=== PATIENT | female | born 1975 | race Caucasian/White ===

== ENCOUNTER 2023-06-14 22:00 | Emergency (ER) | payer OTHER, SELFPAY ==
[2023-06-14 22:11] VITALS: BP 106/72; PULSE 81; RESP 16; TEMP 36.6; O2SAT 100; BMI 22.3
--- NOTE | 2023-06-14 22:17 | CRLHL7_ITS ---
For Patients: As a result of the Cures Act, medical imaging exams and procedure reports are released immediately into your electronic medical record. You may view this report before your referring provider. If you have questions, please contact your health care provider. INDICATION: Chest pain TECHNIQUE: Chest radiograph 1 view COMPARISON: None FINDINGS: Mediastinum: The mediastinum is normal in appearance. The heart silhouette is normal in size and morphology. Lung: Both lungs are unremarkable in appearance. No sign of pleural effusion seen. No pneumothorax is identified. Bone and Soft tissue: Unremarkable for age. IMPRESSION: 1. No acute cardiopulmonary disease is seen. Dictated by: Javier Tellez MD @ 06/14/2023 23:22:56 (Electronically Signed)
--- NOTE | 2023-06-14 22:18 | ED.CHESTPAIN ---
HPI - Chest Pain General Chief Complaint: Chest Pain Stated Complaint: chest pain Time Seen by Provider: 06/14/23 22:11 History of Present Illness HPI narrative: Patient is a 47-year-old woman who began feeling poorly approximately 7 hours ago with general malaise body aches and fatigue. She has had no cough no shortness of breath orthopnea no PND. She did develop chest pain approximately 3 hours ago which was substernal radiated to her jaw. She has had nausea without vomiting. She has had no abdominal pain no change in her bowel or bladder. She is quite upset about her symptoms and has had some palpitations and chest pain over the last several weeks. No other significant symptoms. Related Data Home Medications Medication Instructions Recorded Confirmed sumatriptan succinate 50 mg tablet 50 mg PO .As Needed PRN 08/07/22 03/14/23 pregabalin 75 mg capsule 150 mg PO QHS 01/30/23 03/14/23 Previous Rx's Medication Instructions Recorded estradiol 0.1 mg/24 hr semiweekly 1 patch transdermal 2XW #24 ea 06/28/22 transdermal patch amitriptyline 10 mg tablet 10 mg PO QDAY #90 tabs 01/30/23 lisdexamfetamine 40 mg capsule 40 mg PO QAM #30 caps 06/13/23 (Vyvanse) Allergies Allergy/AdvReac Type Severity Reaction Status Date / Time clavulanic acid AdvReac Gastrointestinal Verified 03/14/23 10:14 Upset codeine AdvReac Gastrointestinal Verified 03/14/23 10:14 Upset fexofenadine AdvReac rapid Verified 03/14/23 10:14 heart rate meloxicam AdvReac Diarrhea Verified 03/14/23 10:14 Review of Systems Status of ROS Reports: 10 or more systems reviewed and unremarkable except as noted in History and below [facility] Medical History Psoriasis ?L40.9 - Psoriasis, unspecified (ICD-10) Asthma ?J45.909 - Unspecified asthma, uncomplicated (ICD-10) Fibromyalgia ?M79.7 - Fibromyalgia (ICD-10) Hormone replacement therapy (05/05/19) ?Z79.890 - Hormone replacement therapy (ICD-10) 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 - Other specified endocrine disorders (ICD-10) Generalized anxiety disorder ?F41.1 - Generalized anxiety disorder (ICD-10) Edema ?R60.9 - Edema, unspecified (ICD-10) Chronic pain of right knee ?M25.561 - Pain in right knee (ICD-10) ?G89.29 - Other chronic pain (ICD-10) Chronic neck pain ?M54.2 - Cervicalgia (ICD-10) ?G89.29 - Other chronic pain (ICD-10) ADD (attention deficit disorder) ?F98.8 - Other specified behavioral and emotional disorders with onset usually occurring in childhood and adolescence (ICD-10) Surgical History History of bunionectomy (~1998) ?Z98.890 - Other specified postprocedural states (ICD-10) History of cholecystectomy (~2012) ?Z90.49 - Acquired absence of other specified parts of digestive tract (ICD-10) History of left oophorectomy (05/05/19) ?Z90.721 - Acquired absence of ovaries, unilateral (ICD-10) S/P laparoscopic hysterectomy (09/10/17) ?Z90.710 - Acquired absence of both cervix and uterus (ICD-10) Status post delivery (~2014) ?Z98.891 - History of uterine scar from previous surgery (ICD-10) Status post appendectomy (09/10/17) ?Z90.49 - Acquired absence of other specified parts of digestive tract (ICD-10) History of bilateral ligation of fallopian tubes (~2014) ?Z98.51 - Tubal ligation status (ICD-10) Family History (Updated 06/28/22 @ 10:22 by Christel Mcknight MD) Paternal Grandmother Ovarian cancer Maternal Grandmother Uterine cancer Mother Thyroid disease Father Alcohol dependence Social History (Updated 01/31/23 @ 14:06 by Kajal Menezes ~ CTA) Narrative: Cis-gender, heterosexual, woman Relationship status: . Spouse/Partner: Jose Children: 2 sets of twins: vaginal delivery at 36 weeks in 2003: boy and girl. at 38 weeks 2015: 2 boys. Education: Some college. Occupation: customer accounts advisor Tobacco: Lifetime nonsmoker E-cigarettes: No Alcohol: Rare alcohol intake 0-1 servings/month Illicit/recreational drugs no Safety concerns at home or work: No Dietary restriction(s): None Exercise: Intermittent, patient has fibromyalgia What is your current living situation?: I presently have a place to live Problems where you live: pests, such as bugs, ants, or mice In the past 12 months, utilities in danger of being shut off: no In past 12 months, lack of transportation kept you from medical appts, meetings, work, or getting things needed for daily living: no In the past 12 mos, have been you worried that your food would run out before you had money to buy more?: never true In the past 12 mos, the food you bought just didn't last and you didn't have money to buy more?: never true Smoking Status: Never smoker How often does anyone, including family, friends and others, physically hurt you: never How often does anyone, including family, friends and others, insult or talk down to you: never How often does anyone, including family, friends and others, threaten you with harm: never How often does anyone, including family, friends and others, scream or curse at you: never Little interest or pleasure in doing things: not at all Feeling down, depressed, or hopeless: not at all Exam Narrative Exam Narrative: EXAM GENERAL: Patient appears comfortable and well. EYES: No scleral icterus. ENT: Tympanic membranes and oropharynx normal. THYROID: no thyroid nodules or thyromegaly. LYMPH: No supraclavicular or cervical lymphadenopathy. SKIN: Visible skin seen during exam normal or with benign process only. EXT: No dependent lower extremity pedal edema. HEART: Regular rate and rhythm with no murmurs, rubs, or gallops. LUNGS: Clear to auscultation bilaterally with no crackles or wheezes. ABD: Soft, non tender, non distended. PSYCH: Good eye contact, speech is not pressured. Const Vital Signs, click to edit/add: Vital Signs - 24 hr 06/14/23 22:11 06/15/23 00:11 Temperature 98 F Pulse Rate [Pulse Oximeter] 81 80 Respiratory Rate 16 16 Blood Pressure [Right Upper Arm] 106/72 111/80 Pulse Oximetry 100 100 Oxygen Delivery Method Room Air Course Course ED Course: EKG unremarkable upon my review portable chest x-ray troponin D-dimer CBC CMP pending. 1 L normal saline given. Vital Signs Vital signs: Initial Vital Signs Respiratory Effort Normal 06/14/23 22:01 Respiratory Depth Normal 06/14/23 22:01 Respiratory Pattern Normal 06/14/23 22:01 Vital Signs Temperature 98 F 06/14/23 22:11 Pulse Rate 81 06/14/23 22:11 Respiratory Rate 16 06/14/23 22:11 Blood Pressure 106/72 06/14/23 22:11 Pulse Oximetry 100 06/14/23 22:11 Temperature 98 F 06/14/23 22:11 Pulse Rate 80 06/15/23 00:11 Respiratory Rate 16 06/15/23 00:11 Blood Pressure 111/80 06/15/23 00:11 Pulse Oximetry 100 06/15/23 00:11 Oxygen Delivery Method Room Air 06/15/23 00:11 Medications Administered Medications: Generic Name Dose Route Start Last Admin Trade Name Freq PRN Reason Stop Dose Admin Sodium Chloride 1,000 mls @ 1,000 mls/hr 06/14/23 22:17 06/15/23 00:13 0.9 % Sodium Chloride 1000 Ml IV 06/14/23 23:16 Infused .Q1H RONEY Infusion Lorazepam 1 mg 06/14/23 23:03 06/14/23 23:09 Lorazepam 2 Mg/Ml Inj IVP 06/14/23 23:04 1 mg ONCE ONE Administration MDM - Chest Pain MDM Narrative Medical decision making narrative: Patient is a 47-year-old woman who presents with general malaise weakness fatigue and chest pain. EKG upon arrival upon my review shows no acute ST or T-wave changes. Chest x-ray is unremarkable troponin negative x2 D-dimer negative comprehensive metabolic panel unremarkable CBC unremarkable. I did give her L of normal saline 1 mg of Ativan. She is only marginally better. At this time I am not able to give a definitive answer other than potentially a viral syndrome. Reassurance is offered and she is discharged home with close outpatient follow-up. Lab Data Labs: Lab Results 06/14/23 Range/Units 22:10 WBC 7.07 (4.50-11.00) K/uL RBC 4.96 (4.00-5.20) m/uL Hgb 15.1 (12.0-16.0) gm/dL Hct 44.9 (33.0-51.0) % MCV 91 (80-100) fL MCH 30 (26-34) pg MCHC 34 (32-36) gm/dL RDW Coeff of Darius 12.3 (11.5-15.5) % Plt Count 262 (140-440) K/uL Neut % (Auto) 87.0 H (42.0-72.0) % Lymph % (Auto) 5.9 L (20-44) % Weber % (Auto) 4.5 (0.0-11.0) % Eos % (Auto) 1.7 (0.0-7.0) % Baso % (Auto) 0.1 (0.0-3.0) % Neut # (Auto) 6.20 (1.7-7.0) K/uL Lymph # (Auto) 0.40 L (0.90-2.90) K/uL Weber # (Auto) 0.30 (0.00-0.90) K/UL Eos # (Auto) 0.12 (0.00-0.50) K/uL Baso # (Auto) 0.01 (0.00-0.30) K/uL Abs Immat Gran (auto) 0.06 (0.00-0.30) K/uL Imm/Tot Granulo (auto) 0.8 % D-Dimer Quant (PE/DVT) 0.25 (0.00-0.50) ug/ml Sodium 136 (135-149) mmol/L Potassium 4.1 (3.6-5.1) mmol/L Chloride 104 (96-114) mmol/L Carbon Dioxide 22 (20-32) mmol/L Anion Gap 10 (7-15) mEq/L BUN 11 (5-24) mg/dL Creatinine 0.8 (0.5-1.5) mg/dL Estimated Creat Clear 75.07 Estimated GFR 91 ml/min Glucose 105 (60-115) mg/dL Calcium 8.9 (8.4-10.6) mg/dL Total Bilirubin 0.9 (0.1-1.5) mg/dL AST 31 (12-35) U/L ALT 22 (4-35) U/L Alkaline Phosphatase 53 (40-150) U/L Troponin I < 0.01 L (0.01-0.04) ng/mL Total Protein 7.8 (6.0-8.3) g/dL Albumin 4.7 (3.3-5.0) g/dL Discharge Plan Discharge Clinical Impression: Acute viral syndrome Patient Disposition: Home, Self-Care Condition: Stable Instructions: Viral Syndrome (ED) Additional Instructions: Tylenol Motrin Rest Fluids Zofran as needed for nausea Follow-up with your doctor this coming week. Activity Level: No Restrictions Discharge Diet: Regular Prescriptions: No Action estradiol 0.1 mg/24 hr patch semiweekly 1 patch transdermal 2XW Qty: 24 3RF Rx Instructions: apply 1 patch for 3 days alternating with 1 patch for 4 days each week for 3 wks per 4-wk cycle sumatriptan succinate 50 mg tablet 50 mg PO .As Needed PRN Rx Instructions: ONE TAB AT ONSET OF HEADACHE, MAY REPEAT Q2H PRN, MAX 200 MG/24 HRS pregabalin 75 mg capsule 150 mg PO QHS amitriptyline 10 mg tablet 10 mg PO QDAY Qty: 90 3RF lisdexamfetamine [Vyvanse] 40 mg capsule 40 mg PO QAM Qty: 30 0RF Follow Up/Referrals: Roberto Carlos Bradley MD [Primary Care Provider] - Stand Alone Forms: [employer] Info Instructions
[2023-06-14 22:42] LABS: Albumin* 4.7 g/dL (3.3-5.0); Chloride* 104 mmol/L (96-114); Potassium* 4.1 mmol/L (3.6-5.1); Sodium* 136 mmol/L (135-149)
[2023-06-14 22:44] LABS: Basophils Absolute Auto 0.01 K/uL (0.00-0.30); Basophils Percent Auto 0.1 % (0.0-3.0); Creatinine* 0.8 mg/dL (0.5-1.5); Eosinophils Absolute Auto 0.12 K/uL (0.00-0.50); Eosinophils Percent Auto 1.7 % (0.0-7.0); Est. Creatinine Clearance* 75.07; Estimated Glomerular Filt Rate 91 ml/min; Hematocrit 44.9 % (33.0-51.0); Hemoglobin* 15.1 gm/dL (12.0-16.0); Immature Granulocytes Abs Auto 0.06 K/uL (0.00-0.30); Immature Granulocytes Pct Auto 0.8 %; Lymphocytes Percent Auto 5.9 % (20-44); Mean Corpuscular HGB Conc 34 gm/dL (32-36); Mean Corpuscular Hemoglobin 30 pg (26-34); Mean Corpuscular Volume 91 fL (80-100); Monocytes Percent Auto 4.5 % (0.0-11.0); Platelet Count* 262 K/uL (140-440); RDW Coefficient of Variation % 12.3 % (11.5-15.5); Red Blood Count 4.96 m/uL (4.00-5.20); White Blood Count* 7.07 K/uL (4.50-11.00)
[2023-06-14 22:45] LABS: Alanine Aminotransferase* 22 U/L (4-35); Alkaline Phosphatase* 53 U/L (40-150); Anion Gap 10 mEq/L (7-15); Aspartate Amino Transferase* 31 U/L (12-35); Bilirubin Total* 0.9 mg/dL (0.1-1.5); Blood Urea Nitrogen* 11 mg/dL (5-24); Carbon Dioxide* 22 mmol/L (20-32); Glucose* 105 mg/dL (60-115); Total Protein* 7.8 g/dL (6.0-8.3)
[2023-06-14 22:46] LABS: Calcium* 8.9 mg/dL (8.4-10.6); Slide Review Reflex No
--- OUTSIDE RECORDS SUMMARY | 2023-06-14 22:52 | XMS_ITS | Clinical Summary ---
Author Name Unknown Organization Formerly [facility], [facility]–1983 Address [address] [address] Care Team Providers Care Inspector Tool Name Role Phone Brian Snow MD Primary Care Provider [phone] Source Comments You are receiving this document as you are listed as the primary care provider,follow-up provider, or the patient has been referred to you for consultation.This is in compliance with the Medicare andGrant Hospital[employer] EHR Incentive Program,which states Providers who transition their patient to another setting of careor provider of care or refers their patient to another provider of care shouldprovide summary care record for each transition of care or referral. [facility] Allergies Active Allergy Reactions Criticality Noted Date Comments Fexofenadine Arrhythmia 06/27/2018 Clavulanic Acid 04/23/2019 Codeine 06/27/2018 vomiting Meloxicam 04/23/2019 Medications Medication Sig Dispensed Refills Start Date End Date Status multivitamin (THERAGRAN) tablet Take 1 Tablet by mouth daily. 0 Active Berwyn-3 Fatty Acids (FISH OIL CONCENTRATE OR)Indications:758 mg Take 1 Capsule by mouth daily. Indications: 758 mg 0 Active Misc Natural Products (JOINT SUPPORT COMPLEX OR) 0 Activ e lisdexamfetamine (VYVANSE) 30 MG capsule Take 1 Capsule by mouth daily. 0 04/23/2019 Active SUMAtriptan (IMITREX) 50 MG tablet Take 1 Tablet by mouth as needed for Migraine. May repeat one tablet after 2 hours if needed. Maximum 4 tabs/24 hours and 9 days/month 9 Tablet 0 04/23/2019 Active calcium carbonate-vitamin D 500-400 MG-UNIT tablet Take 1 Tablet by mouth two times a day. 0 04/23/2019 Active [place]wyn-3 Fatty Acids (FISH OIL) 1000 MG capsule 0 04/23/2019 Active Lactobacillus (ACIDOPHILUS) 0 04/23/2019 Active pregabalin (LYRICA) 75 MG capsule ? Strength 1 cap am, 2 caps pm, prescribed by primary. 180 Capsule 3 05/22/2019 Active Active Problems Problem Noted Date Diagnosed Date FHx: UCHE-BSO (total abdomina l hysterectomy and bilateral salpingo-oophorectomy) 05/22/2019 Fibromyalgia 04/24/2019 Multiple joint pain 04/24/2019 HELEN positive 04/24/2019 Positive anti-CCP test 04/24/2019 Social History Tobacco Use Types Packs/Day Years Used Date Smoking Tobacco: Never Smokeless Tobacco: Never Alcohol Use Standard Drinks/Week Comments Yes 0 (1 standard drink = 0.6 oz pur e alcohol) Sex and Gender Information Value Date Recorded Sex Assigned at Not on file Gender Identity Not on file Sexual Orientation Not on file Last Filed Vital Signs Vital Sign Reading Time Taken Comments Blood Pressure 114/58 05/22/2019 8:29 AM IOS DEVELOPER Pulse 97 05/22/2019 8:29 AM IOS DEVELOPER Temperature - - Respiratory Rate - - Oxygen Saturation - - Inhaled Oxygen Concentration - - Weight 62.6 kg (138 lb) 05/22/2019 8:29 AM IOS DEVELOPER Height 162.6 cm (5' 4) 05/22/2019 8:29 AM IOS DEVELOPER Body Mass Index 23.69 05/22/2019 8:29 AM IOS DEVELOPER Plan of Treatment Health Maintenance Due Date Last Done Comments Cervical Cancer Screening Due 1975 Colon Cancer Screening Plan Due 1975 HepB (1) 1975 COVID-19 Vaccine (#1) 06/08/1976 HIV Screening (Preventive Services) 1991 Adult Preventive Visit 12/06/1993 Cholesterol 12/06/2020 Influenza (#1) 2023 05/10/2020, 04/13/2020 DTaP/Tdap/Td (2 - Tdap) 07/23/2024 07/23/2014 Zoster/Shingles (1 of 2) 12/06/2025 Hep C Screening (Preventive Services) Completed 06/27/2018 HepA Aged Out No longer eligi ble based on patient's age to complete this topic Hib Aged Out No longer eligi ble based on patient's age to complete this topic IPV (Polio) Aged Out No longer eligi ble based on patient's age to complete this topic MCV4 Aged Out No longer eligi ble based on patient's age to complete this topic Pneumococcal Aged Out No longer eligi ble based on patient's age to complete this topic Care Teams Inspector Tool Relationship Specialty Start Date End Date Brian Snow MD PCP - General 06/25/18
--- OUTSIDE RECORDS SUMMARY | 2023-06-14 22:52 | XMS_ITS | Clinical Summary ---
Author Name Unknown Organization [facility] Address [place], [place] [address] Care Team Providers Care Auto Electrician Name Role Phone Unknown, Doctor Primary Care Provider Unavailabl e Allergies Active Allergy Reactions Criticality Noted Date Comments Fexofenadine 01/27/2007 heart races and like an extra beat Codeine 01/27/2007 does not tolerate Venlafaxine Analogues 01/27/2007 does not tolerate Medications Medication Sig Dispensed Refills Start Date End Date Status AUGMENTIN 875 MG-125 MG TABIndications:Acute sinusitis, unspecified take 1 tablet by oral route every 12 hours 28 0 01/27/2007 Active FLONASE 50 MCG/ACTUATION NASAL SPRAY AEROSOLIndications:A cute sinusitis, unspecified inhale 2 sprays in each nostril by intranasal route once daily 1 12 01/27/2007 Active DOXYCYCLINE HYCLATE 100 MG CAP take 1 capsule (100 mg) by oral route twice daily 20 0 02/03/2007 Active traMADoL (ULTRAM) 50 mg tabletIndications:Bu nion, left foot Take 1 Tablet (50 mg) by mouth every 6 hours if needed for Pain. 15 Tablet 0 08/30/2022 Active Active Problems Problem Noted Date Diagnosed Date Adjustment disorder with anxiety 02/20/2007 Family History Relation Name Status Comments Father Alive Mother Alive Social History Tobacco Use Types Packs/Day Years Used Date Smoking Tobacco: Never Smokeless Tobacco: Never Tobacco Cessation:Counseling Given: Not Answered Alcohol Use Standard Drinks/Week Comments Yes 0 (1 standard drink = 0.6 oz pur e alcohol) Sex and Gender Information Value Date Recorded Sex Assigned at Not on file Gender Identity Not on file Sexual Orientation Not on file Obstetrics History Last Filed Vital Signs Vital Sign Reading Time Taken Comments Blood Pressure 101/68 01/27/2007 5:36 PM CDT Pulse 55 01/27/2007 5:36 PM CDT Temperature 36.8 ??C (98.2 ??F) 01/27/2007 5:36 PM CD T Respiratory Rate - - Oxygen Saturation 100% 01/27/2007 5:36 PM CDT Inhaled Oxygen Concentration - - Weight 62.5 kg (137 lb 12.8 oz) 01/27/2007 5:36 PM CDT Height - - Body Mass Index - - Plan of Treatment Scheduled Procedures Name Priority Associated Diagnoses Date/Ti me BUNIONECTOMY Tier 4 Bunion, left foot Bunionette of left foot Health Maintenance Due Date Last Done Comments COVID-19 vaccine series (#1) 06/08/1976 Tdap 12/06/1986 Depression screening for age 12+ 1987 HIV for age 15-65 12/06/1990 BMI (ht and wt on same day) for age 18+ 12/06/1993 Hepatitis C screening for age 18-79 12/06/1993 Tetanus booster 1995 Pap test for age 21-65 06/24/2018 6, 06/24/2015, 02/17/2014, Additional history exists Colonoscopy through age 75 12/06/2020 Lipids for age 45-75 12/06/2020 Mammogram for age 45-75 12/06/2020 Influenza for age 9-49 01/18/2023 Pneumococcal series for age 6-64 Aged Out No longer eligible based on patient's age to complete this topic Care Teams Auto Electrician Relationship Specialty Start Date End Date Unknown, Doctor . PCP - General 06/01/08
[2023-06-14 22:58] LABS: Troponin I* < 0.01 ng/mL (0.01-0.04)
[2023-06-14] MEDS: LORazepam 2 MG/ML inj 1 MG IVP (23:09)
[2023-06-14] MEDS: 0.9 % SODIUM CHLORIDE 1000 ml 1,000 ML IV (23:09)
[2023-06-14 23:55] LABS: D Dimer Quantitative* 0.25 ug/ml (0.00-0.50)
[2023-06-15 00:11] VITALS: BP 111/80; PULSE 80; RESP 16; O2SAT 100
[2023-06-15 00:23] LABS: Troponin I* < 0.01 ng/mL (0.01-0.04)
--- NOTE | 2023-06-15 00:49 | PC.NURSE ---
patient DC with , DC teaching reviwed with patinet and she states understanding. no further questions, all belonging sent with patient
== END 2023-06-15 00:49 | disposition home or self-care (01) ==
PROVIDERS: Emergency Provider Internal Medicine; PCP Family Medicine
DX: B34.9 Viral infection, unspecified (principal)
CPT/HCPCS: 36415; 71045; 80053; 84484; 85025; 85379; 96374; 99283; 99284; J2060; J7030

== ENCOUNTER 2023-08-13 10:59 | Outpatient (CLI) | payer OTHER, SELFPAY ==
[2023-08-13 11:52] VITALS: BP 116/62; PULSE 118; RESP 18
--- NOTE | 2023-08-13 11:59 | W.PM.STED ---
Stress Test Note Date Date of test: 08/13/23 Providers Primary care provider: Roberto Carlos Bradley Stress test physician: Nemesio Marques Stress Test Note Stress test ordered: Exercise Stress Test Indication for test: Chest pain, Shortness of Breath Stress test medicine: None Results discussion: Patient the presents for above test after discussion the risks benefits and side effects, she would like to proceed. Pretest EKG shows normal sinus rhythm, there is a right bundle branch block configuration. Cardiac stress test medical history form is reviewed in detail. Following spur Mook protocol patient was able exercised for a total time of 12 minutes 31 seconds. Test is terminated because of fulfillment of protocol, she had no chest pain shortness of breath and otherwise felt fine. Some mild irregularities of ST wave changes are notable, none indicative of ischemia. And was reassuring upsloping. No dysrhythmias are noted, Impression: Negative electrographic tracing on regular stress test, excellent functional capacity. Follow up suggested: Follow-up per primary care, if further testing is needed, stress echo would be suggested, patient left this testing facility in excellent condition.
== END 2023-08-13 11:53 | disposition home or self-care (01) ==
PROVIDERS: PCP Family Medicine; Visit Provider Family Medicine
DX: R06.09 Other forms of dyspnea (principal); R07.9 Chest pain, unspecified
CPT/HCPCS: 93016; 93017

== ENCOUNTER 2025-02-03 08:52 | Outpatient (CLI) | payer OTHER, SELFPAY | END 2025-02-03 08:53 | disposition home or self-care (01) | LOC: NFLDREF 08:53 | PROVIDERS: PCP Family Medicine; Visit Provider Obstetrics & Gynecology | DX: Z13.6 Encounter for screening for cardiovascular disorders (principal) | CPT/HCPCS: 80061 ==